=== PATIENT | female | born 2000 | race Caucasian/White ===

== ENCOUNTER 2023-12-02 09:28 | Day surgery (SDC) | payer BC ==
[~2023-12-02] VITALS: Ht 157.5 cm; Wt 63.5 kg
[2023-12-02 10:06] LABS: HCG,QUAL RESULT NEGATIVE (NEGATIVE)
[2023-12-02 10:48] LABS: PROTHROMBIN TIME 10.7 SECS (9.5-12.5)
[2023-12-02] MEDS ORDERED: fentaNYL CITRATE/PF 100 MCG/2 ML AMP ONE (11:01)
[2023-12-02] MEDS ORDERED: ACETAMINOPHEN I.V. 1000 MG 100 ML IV ONE (11:01)
[2023-12-02] MEDS ORDERED: MIDAZOLAM HCL 2 MG/2 ML VIAL (VERSED) ONE (11:01)
[2023-12-02] MEDS ORDERED: ePHEDrine sulfate 50 MG/ML VIAL ONE (11:02)
[2023-12-02] MEDS ORDERED: LR 1,000 ML IV ONE (11:30)
[2023-12-02] MEDS ORDERED: fentaNYL CITRATE/PF 100 MCG/2 ML AMP IVP PRN ×2 (11:30)
[2023-12-02] MEDS ORDERED: HYDROmorphone 1 MG/ML INJ. CARTRIDGE IVP PRN (11:30)
[2023-12-02] MEDS ORDERED: ONDANSETRON HCL 4 MG/2 ML VIAL IVP PRN (11:30)
[2023-12-02 12:40] VITALS: O2SAT 100
[2023-12-02 14:45] VITALS: BP_SYST 113; PULSE 68; RESP 16
== END 2023-12-02 14:23 | disposition home or self-care (01) ==
LOC: SDS 09:28 → SMU 09:29 → SDS 14:23
PROVIDERS: ATTEND Podiatrist Primary Podiatric Medicine
DX: M20.11 Hallux valgus (acquired), right foot (principal); M21.611 Bunion of right foot; F41.9 Anxiety disorder, unspecified; F41.8 Other specified anxiety disorders; G43.709 Chronic migraine without aura, not intractable, without status migrainosus; E83.51 Hypocalcemia; Z98.890 Other specified postprocedural states; Z79.899 Other long term (current) drug therapy; Z82.49 Family history of ischemic heart disease and other diseases of the circulatory system; Z80.1 Family history of malignant neoplasm of trachea, bronchus and lung; Z83.49 Family history of other endocrine, nutritional and metabolic diseases; Z83.438 Family history of other disorder of lipoprotein metabolism and other lipidemia; Z80.8 Family history of malignant neoplasm of other organs or systems
CPT/HCPCS: 87081; 28296; 84703; 85610; 85730; 36415; 88304; J3465; J2704; J3010; J7120; J0131